=== PATIENT | female | born 1965 | race Caucasian/White ===

== ENCOUNTER → 2019-10-22 09:53 | Outpatient (BNVA) | payer BC, SELFPAY | PROVIDERS: Visit Provider Registered Nurse | DX: I10 Essential (primary) hypertension (principal); E11.9 Type 2 diabetes mellitus without complications; E78.5 Hyperlipidemia, unspecified; F41.8 Other specified anxiety disorders | CPT/HCPCS: 80053; 80061; 83036; 84443; 85025 ==

== ENCOUNTER → 2020-04-13 09:39 | Outpatient (BNVA) | payer BC, SELFPAY | PROVIDERS: Visit Provider Registered Nurse | DX: E11.65 Type 2 diabetes mellitus with hyperglycemia (principal); I10 Essential (primary) hypertension | CPT/HCPCS: 80053; 80061; 83036; 85025 ==

== ENCOUNTER 2020-04-30 17:38 | Emergency (ER) | payer BC, SELFPAY ==
[2020-04-30 17:40] VITALS: BP 162/89; PULSE 92; RESP 16; TEMP 36.8; O2SAT 97; BMI 31.2
--- NOTE | 2020-04-30 17:51 | XRR_ITS ---
PROCEDURE INFORMATION: Exam: XR Chest, 1 View Exam date and time: 04/30/2020 6:09 PM Age: 54 years old Clinical indication: Other: Possible stroke; Additional info: Dva TECHNIQUE: Imaging protocol: XR of the chest Views: 1 view. COMPARISON: No relevant prior studies available. FINDINGS: Lungs: Unremarkable. No consolidation. Right mid lung granuloma. Pleural space: Unremarkable. No pleural effusion. No pneumothorax. Heart/Mediastinum: Unremarkable. No cardiomegaly. Bones/joints: Unremarkable. XR/XR chest 1V portable [id number] IMPRESSION: No acute findings.
--- NOTE | 2020-04-30 17:51 | ECG_ITS ---
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 Measurements Intervals [place] Rate: 80 P: -10 OH: 140 QRS: -25 QRSD: 88 T: 32 QT: 364 QTc: 420 Interpretive Statements SINUS RHYTHM MINIMAL VOLTAGE CRITERIA FOR LVH, CONSIDER NORMAL VARIANT [MEETS CRITERIA IN ONE OF: R(aVL), S(V1), R(V5), R(V5/V6)+S(V1)] SEPTAL MYOCARDIAL INFARCTION , PROBABLY OLD [40+ ms Q WAVE IN V1/V2] No previous ECG available for comparison Electronically Signed On 04-30-2020 20:39:13 CDT by Shanique Parson M.D. [id number] f
--- NOTE | 2020-04-30 17:51 | CTR_ITS ---
PROCEDURE INFORMATION: Exam: CT Head Without Contrast Exam date and time: 04/30/2020 5:55 PM Age: 54 years old Clinical indication: Speech disturbance; Patient HX: Expressive aphasia now resolved; Additional info: Symptoms of acute stroke TECHNIQUE: Imaging protocol: Computed tomography of the head without contrast. Radiation optimization: All CT scans at this facility use at least one of these dose optimization techniques: automated exposure control; mA and/or kV adjustment per patient size (includes targeted exams where dose is matched to clinical indication); or iterative reconstruction. COMPARISON: CT head wo con* [id number] 01/20/2014 12:12 PM RADIATION DOSE METRICS: Total DLP (mGy-cm): 791.47 FINDINGS: Brain: Incomplete imaging of the brain in the axial plane. No visible acute intracranial pathologic process or hemorrhage. Prominent Virchow Virgilio spaces. Unremarkable white matter. No mass effect. Cerebral ventricles: No ventriculomegaly. Bones/joints: Unremarkable. No acute fracture. Paranasal sinuses: Visualized sinuses are unremarkable. No fluid levels. Mastoid air cells: Visualized mastoid air cells are well aerated. Soft tissues: Unremarkable. CT/CT head wo con* [id number] IMPRESSION: No acute intracranial abnormality. Radiation Dose CTDIVOL = (mGy): DLP = 791.47 (mGy-cm)
--- NOTE | 2020-04-30 17:58 | PC.NURSE ---
pt to ct by stretcher with tech.
[2020-04-30 17:59] VITALS: O2SAT 98
[2020-04-30 18:29] LABS: Basophils % 0.5 %; Eosinophils # 0.2 10^3/uL (0.0-0.8); Eosinophils % 1.7 %; Hematocrit 45.4 % (37.0-47.0); Hemoglobin 15.1 g/dL (11.5-15.3); Lymphocytes # 3.7 10^3/uL (0.8-4.8); Lymphocytes % 42.9 %; Mean Corpuscular HGB Conc 33.3 g/dL (30.0-36.0); Mean Corpuscular Hemoglobin 29.4 pg (28.0-34.0); Mean Corpuscular Volume 88.3 fL (81-99); Monocytes # 0.6 10^3/uL (0.2-0.9); Monocytes % 7.4 %; Neutrophils # 4.08 10^3/uL (1.8-7.7); Neutrophils % 47.3 %; Nucleated Red Blood Cells % 0 %; Platelet Count 255 10^3/cmm (130-400); Red Blood Count 5.14 10^6/uL (4.1-5.3); Red Cell Distribution Width 12.5 % (12.1-15.1); White Blood Count 8.6 10^3/uL (4.0-10.0)
[2020-04-30 18:31] VITALS: BP 131/71; PULSE 84; RESP 17; O2SAT 97
[2020-04-30 18:34] LABS: Glucose Point of Care 323 mg/dL (70-110)
[2020-04-30 18:43] LABS: INR 0.89 (0.8-1.2)
[2020-04-30 18:48] LABS: Alanine Aminotransferase 23 U/L (0-33); Albumin Level 4.6 g/dL (3.5-5.2); Alkaline Phosphatase 115 IU/L (35-105); Anion Gap 15.8 (5-19); Aspartate Amino Transferase 18 U/L (0-32); Blood Urea Nitrogen 17 mg/dL (6-20); Calcium 11.2 mg/dL (8.5-10.5); Carbon Dioxide 26 mmol/L (22-29); Chloride 95 mmol/L (98-107); Creatinine Clr Calc Pharmacy 149.9543; Glomerular Filtration Rate 127.6 mL/min (90-130); Glucose 322 mg/dL (65-115); Osmolality Calculated 290 mOsm/kg (285-295); Potassium 3.8 mmol/L (3.5-5.1); Sodium 133 mmol/L (136-145); Total Bilirubin 0.6 mg/dL (0.15-1.2); Total Protein 7.6 g/dL (6.6-8.7)
[2020-04-30] MEDS: insulin regular-human 100 units/1 mL 5 UNIT IVP (19:12)
--- NOTE | 2020-04-30 19:17 | ED_ITS ---
HPI - Neuro Symptoms/Deficit General: Chief Complaint: Neuro Symptoms/Deficit Stated Complaint: possible stroke Time Seen by Provider: 04/30/20 17:51 Source: patient Mode of arrival: ambulatory Limitations: no limitations History of Present Illness: HPI Narrative: 34-year-old female states that today at roughly 430 she had expressive aphasia along with some numbness in her arm lasted roughly 5 minutes. States that since completely resolved. She states she was hyperglycemic at the time. Patient states that she has not had any symptoms since then. She denies headache. She denies any chest pain. Denies any vomiting or diarrhea. Associated symptoms: Deny chest pain, headache(s), nausea or vomiting Review of Systems Const: Denies: fever(s), chills, body aches or change in appetite Eyes: Denies: blurry vision or eye discomfort ENMT: Denies: throat pain or dental pain Card: Denies: chest pain Resp: Denies: dyspnea GI: Denies: abdominal pain, nausea, vomiting or diarrhea : Denies: dysuria Musc: Denies: neck pain or back pain Skin/Breast: Denies: rash Neuro: Reports: numbness in extremities; Denies: headache(s) Psych: Denies: depression Edgar/Lymph: Denies: easy bruising All/Imm: Denies: urticaria PFSH ED PFSH: Family History Other Diabetes Hypertension Social History Smoking and tobacco status: never smoked Alcohol intake: never Caregiver/support person: No Lives independently: Yes Marital status: Single Current occupational status: employed History of recent travel: No Sexually active: Yes Current gender identity: Female NIH stroke score NIHSS: Level Of Consciousness - 1a: 0 Level Of Consciousness Questions - 1b: Both Correct Level Of Consciousness Commands - 1c: Both Correct Best Gaze - 2: Normal Visual Russo - 3: No Visual Loss Facial Palsy - 4: Normal Motor Arm Right - 5: No Drift Motor Arm Left - 5: No Drift Motor Leg Right - 6: No Drift Motor Leg Left - 6: No Drift Limb Ataxia - 7: Absent Sensory - 8: Normal Best Language - 9: No Aphasia Dysarthia - 10: Normal Extinction And Inattention - 11: 0 Score: Total Score: 0 Physical Exam Const: COMMON NORMALS: no acute distress, patient oriented x3 and healthy appearing HENMT: COMMON NORMALS: normocephalic and atraumatic HEAD & SCALP: normoceph alic and atraumatic Eye: COMMON NORMALS: Equal, round and reactive pupils present and EOMs intact bilaterally PUPIL: Yes Equal, round and reactive pupils present Neck/C-Spine: COMMON NORMALS: full ROM and supple Chest: COMMONS NORMALS: normal inspection of the chest and normal palpation of entire chest wall Resp: COMMON NORMALS: normal respiratory effort, No retractions, No use of accessory muscles and clear to auscultation bilaterally AUSCULTATION: clear to auscultation bilaterally Cardio: COMMON NORMALS: regular rate, regular rhythm and No murmurs present (Cardio) RATE: regular rate RHYTHM: regular rhythm GI: COMMON NORMALS: Normal to inspection, nondistended, normoactive bowel sounds present, Soft to palpation, non-tender and no masses PALPATION: Yes Soft to palpation Extremity: COMMON NORMALS: normal to inspection and full ROM Neuro: COMMON NORMALS: patient oriented x3, moves all extremities and no focal motor deficits Psych: COMMON NORMALS: mental status grossly normal, Normal thought process present and cooperative THOUGHT PROCESS: Normal thought process present Skin: COMMON NORMALS: no rashes or lesions noted and no wounds GENERAL SKIN EXAM: no rashes or lesions noted Course Vital Signs: Vital signs: Vital Signs Temperature 98.3 F 04/30/20 17:40 Pulse Rate 77 04/30/20 19:40 Respiratory Rate 16 04/30/20 19:40 Blood Pressure 129/72 04/30/20 19:40 Pulse Oximetry 99 04/30/20 19:40 MDM - Neuro Symptoms/Deficit MDM Narrative: Medical decision making narrative: Patient presents here with TIA. Patient here and lives close. Strongly recommended admission for TIA work-up. States she feels much improved would like to go home and she believes this is due to her high blood sugar. Patient is here with an OB nurse as well who states she will watch her. We will discharge her and set her up for an outpatient carotid ultrasound and echo. She is to take an aspirin daily. She is to return immediately if she has any symptoms. Lab Data: Labs: Lab Results 04/30/20 04/30/20 04/30/20 Range/Units 18:21 18:21 18:21 WBC 8.6 (4.0-10.0) 10^3/ uL RBC 5.14 (4.1-5.3) 10^6/u L Hgb 15.1 (11.5-15.3) g/dL Hct 45.4 (37.0-47.0) % MCV 88.3 (81-99) fL MCH 29.4 (28.0-34.0) pg MCHC 33.3 (30.0-36.0) g/dL RDW 12.5 (12.1-15.1) % Plt Count 255 (130-400) 10^3/c mm MPV 11.0 H (7.4-10.4) fL Neut % (Auto) 47.3 % Lymph % (Auto) 42.9 % Schley % (Auto) 7.4 % Eos % (Auto) 1.7 % Baso % (Auto) 0.5 % Neut # (Auto) 4.08 (1.8-7.7) 10^3/u L Lymph # (Auto) 3.7 (0.8-4.8) 10^3/u L Schley # (Auto) 0.6 (0.2-0.9) 10^3/u L Eos # (Auto) 0.2 (0.0-0.8) 10^3/u L Baso # (Auto) 0.0 (0.0-0.1) 10^3/u L Nucleated RBC % (a uto) 0 % Nucleated RBCs # 0.0 /100WBC PT 12.30 (12.1-14.9) SECO NDS INR 0.89 (0.8-1.2) Sodium 133 L (136-145) mmol/L Potassium 3.8 (3.5-5.1) mmol/L Chloride 95 L (98-107) mmol/L Carbon Dioxide 26 (22-29) mmol/L Anion Gap 15.8 (5-19) BUN 17 (6-20) mg/dL Creatinine 0.5 (0.5-0.9) mg/dL GFR Calculation 127.6 (90-130) mL/min Glucose 322 H (65-115) mg/dL POC Glucose (70-110) mg/dL Calculated Osmolal ity 290 (285-295) mOsm/k g Calcium 11.2 H (8.5-10.5) mg/dL Total Bilirubin 0.6 (0.15-1.2) mg/dL AST 18 (0-32) U/L ALT 23 (0-33) U/L Alkaline Phosphata se 115 H (35-105) IU/L Total Protein 7.6 (6.6-8.7) g/dL Albumin 4.6 (3.5-5.2) g/dL Globulin 3.0 (1.3-4.6) g/dL 04/30/20 Range/Units 18:29 WBC (4.0-10.0) 10^3/ uL RBC (4.1-5.3) 10^6/u L Hgb (11.5-15.3) g/dL Hct (37.0-47.0) % MCV (81-99) fL MCH (28.0-34.0) pg MCHC (30.0-36.0) g/dL RDW (12.1-15.1) % Plt Count (130-400) 10^3/c mm MPV (7.4-10.4) fL Neut % (Auto) % Lymph % (Auto) % Schley % (Auto) % Eos % (Auto) % Baso % (Auto) % Neut # (Auto) (1.8-7.7) 10^3/u L Lymph # (Auto) (0.8-4.8) 10^3/u L Schley # (Auto) (0.2-0.9) 10^3/u L Eos # (Auto) (0.0-0.8) 10^3/u L Baso # (Auto) (0.0-0.1) 10^3/u L Nucleated RBC % (a uto) % Nucleated RBCs # /100WBC PT (12.1-14.9) SECO NDS INR (0.8-1.2) Sodium (136-145) mmol/L Potassium (3.5-5.1) mmol/L Chloride (98-107) mmol/L Carbon Dioxide (22-29) mmol/L Anion Gap (5-19) BUN (6-20) mg/dL Creatinine (0.5-0.9) mg/dL GFR Calculation (90-130) mL/min Glucose (65-115) mg/dL POC Glucose 323 (70-110) mg/dL Calculated Osmolal ity (285-295) mOsm/k g Calcium (8.5-10.5) mg/dL Total Bilirubin (0.15-1.2) mg/dL AST (0-32) U/L ALT (0-33) U/L Alkaline Phosphata se (35-105) IU/L Total Protein (6.6-8.7) g/dL Albumin (3.5-5.2) g/dL Globulin (1.3-4.6) g/dL Imaging Data^: CT Head: Radiologist's impression: [address] [address] [address] Scan Report Signed with Addenda Patient: Chayo Menard Unit #: [id number] : 1965 Age/Sex: 54 / F ADM Date: 04/30/20 Loc: ER Room/Bed: Attending Dr: Ordering Provider/Ordering MD: Jose Manriquez MD Date of Service: 04/30/20 Procedure(s): CT head wo con* [id number] Accession Number(s): [id number] Report Number: [id number]/CT head wo con* [id number] THIS REPORT CONTAINS FINDINGS THAT MAY BE CRITICAL TO PATIENT CARE. The findings were verbally communicated via telephone conference with jose Manriquez at 7:00 PM CDT on 04/30/2020. The findings were acknowledged and understood. Radiation Dose CTDIVOL = (mGy): DLP = 791.47 (mGy-cm) Addendum Dictated By: Joao Benitez Addendum Signed By: Joao Benitez Signed Date/Time: 04/30/20 190 2 Addendum Cosigned By: PROCEDURE INFORMATION: Exam: CT Head Without Contrast Exam date and time: 04/30/2020 5:55 PM Age: 54 years old Clinical indication: Speech disturbance; Patient HX: Expressive aphasia now resolved; Additional info: Symptoms of acute stroke TECHNIQUE: Imaging protocol: Computed tomography of the head without contrast. Radiation optimization: All CT scans at this facility use at least one of these dose optimization techniques: automated exposure control; mA and/or kV adjustment per patient size (includes targeted exams where dose is matched to clinical indication); or iterative reconstruction. COMPARISON: CT head wo con* [id number] 01/20/2014 12:12 PM RADIATION DOSE METRICS: Total DLP (mGy-cm): 791.47 FINDINGS: Brain: Incomplete imaging of the brain in the axial plane. No visible acute intracranial pathologic process or hemorrhage. Prominent Virchow Virgilio spaces. Unremarkable white matter. No mass effect. Cerebral ventricles: No ventriculomegaly. Bones/joints: Unremarkable. No acute fracture. Paranasal sinuses: Visualized sinuses are unremarkable. No fluid levels. Mastoid air cells: Visualized mastoid air cells are well aerated. Soft tissues: Unremarkable. CT/CT head wo con* [id number] IMPRESSION: No acute intracranial abnormality. Radiation Dose CTDIVOL = (mGy): DLP = 791.47 (mGy-cm) CXR: Radiologist's impression: [address] [address] XRay Report Signed Patient: Chayo Menard Unit #: [id number] : 1965 Age/Sex: 54 / F ADM Date: 04/30/20 Loc: ER Room/Bed: Attending Dr: Ordering Provider/Ordering MD: Jose Manriquez MD Date of Service: 04/30/20 Procedure(s): XR chest 1V portable [id number] Accession Number(s): [id number] Report Number: [id number] PROCEDURE INFORMATION: Exam: XR Chest, 1 View Exam date and time: 04/30/2020 6:09 PM Age: 54 years old Clinical indication: Other: Possible stroke; Additional info: Dva TECHNIQUE: Imaging protocol: XR of the chest Views: 1 view. COMPARISON: No relevant prior studies available. FINDINGS: Lungs: Unremarkable. No consolidation. Right mid lung granuloma. Pleural space: Unremarkable. No pleural effusion. No pneumothorax. Heart/Mediastinum: Unremarkable. No cardiomegaly. Bones/joints: Unremarkable. XR/XR chest 1V portable [id number] IMPRESSION: No acute findings. EKG Data^: EKG 1: Attestation: I personally reviewed and interpreted this EKG as follows: EKG interpretation date: 04/30/20 EKG interpretation time: 17:19 Interpretation: nsr hr [address] or t wave abnormalities qrs 88 qtc 399 Discharge Plan Discharge Patient Disposition: Home Clinical Impression: Transient cerebral ischemia Qualifiers: Transient cerebral ischemia type: unspecified Qualified Code(s): G45.9 - Transient cerebral ischemic attack, unspecified Condition: Stable Prescriptions: No Action metformin 1,000 mg tablet 1,000 mg PO BID 90 Days Qty: 180 RF: 0 lisinopril 20 mg tablet 20 mg PO DAILY Qty: 90 RF: 0 hydrochlorothiazide 25 mg tablet 25 mg PO DAILY Qty: 30 RF: 0 (DME) blood-glucose meter Kit See Rx Instructions .ROUTE .MEDSUPPLY Qty: 1 RF: 0 (DME) lancets Misc See Rx Instructions .ROUTE .MEDSUPPLY Qty: 200 RF: 0 (DME) Blood Glucose Test Strip See Rx Instructions .ROUTE .MEDSUPPLY Qty: 100 RF: 4 amlodipine 10 mg tablet 10 mg PO DAILY Qty: 90 RF: 0 atorvastatin [Lipitor] 10 mg tablet 10 mg PO DAILY Qty: 90 RF: 0 glipizide 10 mg tablet 10 mg PO BID Qty: 180 RF: 0 Lexapro 10 mg tablet 10 mg PO DAILY RF: 0 Rolaids 550-110 mg Tablet,Chewable 2 tab PO Q4H PRN (Reason: HEARTBURN/ACID REFLUX) RF: 0 Discharge Orders: Discharge Order (Routine); Ordered 04/30/20 Ordered By: Jose Manriquez Discharge Diet: Advance as tolerated Discharge Activity: Resume usual activity Patient Instructions: TIA Discharge Date/Time: 04/30/20 19:41 Coding Level of Care Code ED 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
[2020-04-30 19:40] VITALS: BP 129/72; PULSE 77; RESP 16; O2SAT 99
--- NOTE | 2020-05-03 15:30 | DCPLANNER ---
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 auto fleet maintenance manager faxed order to centralized scheduling. auto fleet maintenance manager will call for appointment information.
--- NOTE | 2020-05-08 08:46 | DCPLANNER ---
Patient has a follow up appointment scheduled for both an echo and carotid ultrasound for , May 27, 2020 at 12:45 and 1:30.
--- NOTE | 2020-05-28 11:17 | DCPLANNER ---
Patient had a follow up appointment scheduled for an echo and a carotid ultrasound - appointment was rescheduled.
== END 2020-04-30 19:41 | disposition home or self-care (01) ==
PROVIDERS: Emergency Provider Emergency Medicine
DX: G45.9 Transient cerebral ischemic attack, unspecified (principal)
CPT/HCPCS: 12345; 36415; 36416; 70450; 71045; 80053; 82962; 85025; 85610; 93005; 96374; 96375; 99283; 99284; J1815

== ENCOUNTER 2020-07-01 12:21 | Outpatient (CLI) | payer BC, SELFPAY ==
--- NOTE | 2020-07-01 12:27 | USCV_ITS ---
Chayo Menard Age: 54 Gender: F : 1965 Exam Date: 07/01/2020 12:44 Ordering Phys: Jose Manriquez MD Technologist: Loretta Arroyo Exam Location: [facility] [place] Indication: TIA BP: / HR: 82 Rhythm: Sinus Technical Quality: Adequate MEASUREMENTS (Male / Female) Normal Values 2D ECHO LV Diastolic Diameter PLAX 4.2 cm 4.2 - 5.9 / 3.9 - 5.3 cm LV Systolic Diameter PLAX 2.0 cm IVS Diastolic Thickness 1.3 cm 0.6 - 1.0 / 0.6 - 0.9 cm IVS Systolic Thickness 1.7 cm LVPW Diastolic Thickness 0.9 cm 0.6 - 1.0 / 0.6 - 0.9 cm LVPW Systolic Thickness 1.8 cm LVOT Diameter 2.0 cm LV Ejection Fraction 2D Teich 83.1 % LV Ejection Fraction MOD 2C 75.3 % LV Ejection Fraction 2C AL 77.1 % LA Diameter 3.3 cm LA Width 3.7 cm LA Height 4.5 cm RA Width 3.0 cm RA Height 4.4 cm Aorta at Sinotubular Diameter 3.1 cm M-MODE LV Diastolic Diameter MM 5.6 cm 4.2 - 5.9 / 3.9 - 5.3 cm LV Systolic Diameter MM 3.6 cm LV Ejection Fraction MM Teich 63.8 % IVS Diastolic Thickness MM 0.5 cm 0.6 - 1.0 / 0.6 - 0.9 cm IVS Systolic Thickness MM 1.0 cm LVPW Diastolic Thickness MM 1.0 cm 0.6 - 1.0 / 0.6 - 0.9 cm LVPW Systolic Thickness MM 1.6 cm Aortic Annulus Diameter 2.8 cm LA Ao Ratio MM 1.0 MV E Point Septal Separation 0.4 cm DOPPLER AV Peak Velocity 137.0 cm/s LVOT Peak Velocity 132.0 cm/s AV Area Cont Eq vti 3.2 cm squared AV Area Cont Eq pk 3.0 cm squared MV Peak Velocity 132.0 cm/s MV Area PHT 2.4 cm squared Mitral E to A Ratio 0.8 MV E' Velocity 55.5 cm/s Mitral E to MV E' Ratio 12.8 Mitral E to LV E' Lateral Ratio 9.4 Mitral E to LV E' Septal Ratio 19.9 TR Peak Velocity 132.7 cm/s TR Peak Gradient 7.0 mmHg Right Atrial Pressure 3.0 mmHg Pulmonary Artery Systolic Pressu 10.0 mmHg PV Peak Velocity 100.0 cm/s RV Acceleration Time 0.1 s RV Ejection Time 0.3 s RV AcT/ET 0.4 FINDINGS Left Ventricle Normal left ventricular cavity size. Normal left ventricular systolic function. No regional wall motion abnormalities. Left ventricular ejection fraction is estimated at 63 %. Grade I/IV diastolic dysfunction (abnormal relaxation filling pattern), normal to mildly elevated filling pressures. Right Ventricle The right ventricle is normal in size and function. Right Atrium The right atrium is normal in size. Left Atrium The left atrium is normal in size. Mitral Valve Mildly thickened mitral valve. Moderate mitral annular calcification. No mitral valve stenosis. No mitral valve regurgitation. Aortic Valve Aortic valve sclerosis without stenosis or regurgitation. Tricuspid Valve Structurally normal tricuspid valve without significant stenosis or regurgitation. Pulmonary artery systolic pressure is normal. Pulmonic Valve Structurally normal pulmonic valve without significant stenosis. There is no pulmonic regurgitation. Pericardium Normal pericardium without effusion. Aorta Normal ascending aorta dimension. CONCLUSIONS 1-Normal left ventricular cavity size. Normal left ventricular systolic function. No regional wall motion abnormalities. Left ventricular ejection fraction is estimated at 63 %. Grade I/IV diastolic dysfunction (abnormal relaxation filling pattern), normal to mildly elevated filling pressures. 2-There is no pericardial effusion. 3-No significant valve abnormalities. 4-Right atrial pressure is around 5 mm of mercury. 5-There are no prior echocardiogram studies to compare. Shanique Parson MD (Electronically Signed) Final Date: 02 July 2020 15:59 S
--- NOTE | 2020-07-01 13:30 | USCV_ITS ---
Chayo Menard Age: 54 Gender: F : 1965 Exam Date: 07/01/2020 13:08 Ordering Phys: Jose Manriquez MD Technologist: Loretta Arroyo Exam Location: [facility] [place] Indication: TIA Risk Factors: Previous Vascular Surgery: Right Brachial BP: / Left Brachial BP: / Right Left Velocity (cm/s) Spectral Plaque Velocity (cm/s) Spectral Plaque Syst/Diast Broadening Syst/Diast Broadening 90.40/ 15.40 Prox CCA 61.50 / 15.40 63.90/ 18.70 Mid CCA 39.30 / 9.40 48.20/ 14.00 Distal CCA 42.20 / 9.10 32.00/ 13.90 Prox ICA 42.70 / 11.20 57.70/ 19.80 Mid ICA 57.20 / 22.30 73.60/ 26.80 Distal ICA 76.90 / 25.60 66.00 ECA 106.90 0.81 ICA/CCA 1.25 Antegrade Vertebral Antegrade 39.50/ 9.10 cm/s 26.50/ 5.60 cm/s Tri Subclavian Tri 101.0 132.1 0 0 FINDINGS Minimal plaques at the bifurcations bilaterally Intimal thickening in the common carotid arteries bilaterally. Antegrade flow in the vertebral arteries bilaterally. Normal Doppler flow velocities in the external carotid arteries bilaterally CONCLUSIONS Minimal plaques at the bifurcations bilaterally. No significant stenosis, based on the above findings Dr Clarence Vazquez MD [facility] (Electronically Signed) Final Date: 02 July 2020 15:59 S
== END 2020-07-01 12:22 | disposition home or self-care (01) ==
LOC: RAD 12:24
PROVIDERS: PCP Registered Nurse; Visit Provider Emergency Medicine
DX: G45.9 Transient cerebral ischemic attack, unspecified (principal); I35.8 Other nonrheumatic aortic valve disorders
CPT/HCPCS: 93306; 93880

== ENCOUNTER → 2020-07-06 08:52 | Outpatient (BNVA) | payer BC, SELFPAY | PROVIDERS: PCP Registered Nurse; Visit Provider Registered Nurse | DX: E11.65 Type 2 diabetes mellitus with hyperglycemia (principal); I10 Essential (primary) hypertension; R07.9 Chest pain, unspecified | CPT/HCPCS: 80053; 83036 ==

== ENCOUNTER 2020-08-03 12:34 | Outpatient (CLI) | payer BC, SELFPAY ==
--- NOTE | 2020-08-03 12:48 | MM_ITS ---
WS: [id number] SCREENING DIGITAL MAMMOGRAM WITH CAD HISTORY: SCREEN COMPARISON: 07/20/2011 Bilateral CC and MLO views submitted. Computer aided detection analyzed. Breast composition: There are scattered areas of fibroglandular density. No suspicious masses, microc alcifications or architectural distortion. MM/[place] [id number] IMPRESSION: BI-RADS: 1-Negative FOLLOW UP: 1 Year Follow-up
== END 2020-08-03 12:35 | disposition home or self-care (01) ==
LOC: RADSHAW 12:36
PROVIDERS: PCP Registered Nurse; Visit Provider Registered Nurse
DX: Z12.31 Encounter for screening mammogram for malignant neoplasm of breast (principal)
CPT/HCPCS: 77067

== ENCOUNTER 2020-10-28 08:17 | Outpatient (CLI) | payer OTHER, SELFPAY ==
[2020-10-28 08:27] VITALS: BMI 33.4
--- NOTE | 2020-10-28 08:28 | ECG_ITS ---
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 Interpretive Statements NAME OF STUDY: EXERCISE SESTAMIBI STRESS TEST INDICATION: [Chest Pain] EXERCISE DATA: The patient was exercised by Jasiel protocol. Baseline heart rate was 85 beats per minute. Baseline blood pressure was 146/91 millimeters of mercury. Target heart rate was 138 beats per minute. Maximum heart rate achieved was 148, which was 90% of the target heart rate. Maximum blood pressure was 239/86 millimeters of mercury. Total exercise time was 4 minutes and 30 seconds. Maximum METs achieved was 7.0, maximum VO2 was 24.5. The reason for ending the test was completion of the protocol. The patient did not complain of significant symptoms during the test. ELECTROCARDIOGRAM: BASELINE: Showed sinus rhythm, normal axis, no significant ST-T changes at the baseline noted. [] EXERCISE: At the peak exercise level, [] No significant ST-T changes suggestive of ischemia noted. [] RECOVERY: During the recovery period, heart rate dropped appropriately. No significant ST-T changes in the recovery suggestive of ischemia noted.Occasional PVCs were noted [] CONCLUSION: 1. Exercise capacity is fair []. 2. Heart rate response was appropriate. 3. Blood pressure response was hypertensive 4. Symptoms not suggestive of ischemia. 5. Electrocardiogram portion of the stress test was not suggestive of ischemia. 6. Nuclear scan will be documented separately. Electronically Signed On 10-31-2020 17:56:25 CDT by Hector Barnes M.D. [email or web address] [email or web address] [facility].[employer]/store/OM/[id number]
--- NOTE | 2020-10-28 08:29 | NMCV_ITS ---
NM nahed perf SPECT r/s* [id number] Chayo Menard Age: 55 Gender: F : 1965 Exam Date: 10/28/2020 09:41 Ordering Phys: Hector Barnes M.D ([email or web address]) Technologist: DONNA Rosenbaum Exam Location: [facility] Indications: CHEST PAIN STRESS TEST Please see separate stress test report in [facility] for full findings IMAGE PROTOCOL Rest/Stress 1 Exercise Day Radiopharmaceutical Dose (mCi) Administration Site Administered by Rest: Tc-99m 10.5 IV DONNA Chapman Sestamibi Stress:Tc-99m 32.7 IV DONNA Chapman Sestamizackary Rest: 28-Oct-2020 60 Discovery 630 Stress: 28-Oct-2020 60 Discovery 630 Radiopharmaceutical was injected at 85 % maximum heart rate. Images obtained in supine and prone position. SPECT RESULTS Technical Quality: Good Raw Data Analysis: Breast attenuation Image Corrections: No attenuation or motion correction applied Summed Stress Score: 8 Summed Rest Score: 9 Summed Difference Score: 1 PERFUSION FINDINGS There is reduced radiotracer uptake on both rest and stress in the anterior, anteroseptal, apical lateral and mid lateral goodrich. This likely represents attenuation artifact. No evidence of ischemia FUNCTIONAL RESULTS (calculated via Gated SPECT) Stress Image LV EF (%): 67 Stress EDV (mL):85 TID: 0.96 Stress ESV (mL):28 FUNCTIONAL FINDINGS: There is normal left ventricular systolic function. IMPRESSIONS 1. Attenuation artifact noted as above. No evidence of ischemia. Normal myocardial perfusion imaging. 2. LV systolic function is normal Hector Barnes MD (Electronically Signed) Final Date: 28 October 2020 18:22 S
--- NOTE | 2020-10-28 10:06 | SUR.PREOP ---
Patient reports no pain or discomfort prior to the start of the procedure.
[2020-10-28 10:40] VITALS: BP 174/91; PULSE 98
== END 2020-10-28 08:18 | disposition home or self-care (01) ==
PROVIDERS: PCP Registered Nurse; Visit Provider Internal Medicine
DX: R07.9 Chest pain, unspecified (principal); I10 Essential (primary) hypertension
CPT/HCPCS: 78452; 93017; A9500

== ENCOUNTER → 2020-11-04 10:53 | Outpatient (BNVA) | payer OTHER, SELFPAY | PROVIDERS: PCP Registered Nurse; Visit Provider Registered Nurse | DX: I10 Essential (primary) hypertension (principal); E11.9 Type 2 diabetes mellitus without complications; R07.9 Chest pain, unspecified; E11.65 Type 2 diabetes mellitus with hyperglycemia; F41.8 Other specified anxiety disorders | CPT/HCPCS: 80053; 83036 ==

== ENCOUNTER 2020-11-09 11:50 | Outpatient (CLI) | payer OTHER, SELFPAY ==
--- NOTE | 2020-11-09 12:02 | XRR_ITS ---
PROCEDURE INFORMATION: Exam: XR Chest Exam date and time: 11/09/2020 12:12 PM Age: 55 years old Clinical indication: Chest pain; Type not specified; Additional info: R07.9 - chest pain, unspecified onset 08/30/20 TECHNIQUE: Imaging protocol: XR of the chest. Views: 2 views. COMPARISON: CR XR chest 1V portable [id number] 04/30/2020 5:56 PM FINDINGS: Lungs: There is a small granuloma in the right lower lobe at the 7th posterior rib measuring 5.6 mm is seen. This finding was present on prior examination and appears similar.. No consolidation. Pleural spaces: Unremarkable. No pleural effusion. No pneumothorax. Heart/Mediastinum: Unremarkable. No cardiomegaly. 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 XR/XR chest 2V* [id number] IMPRESSION: 1. No acute findings. 2. Stable right lung granuloma
== END 2020-11-09 11:51 | disposition home or self-care (01) ==
PROVIDERS: PCP Registered Nurse; Visit Provider Registered Nurse
DX: R07.9 Chest pain, unspecified (principal); J84.10 Pulmonary fibrosis, unspecified
CPT/HCPCS: 71046

== ENCOUNTER 2020-12-07 05:50 | Outpatient (CLI) | payer OTHER, SELFPAY ==
[2020-12-07 06:23] VITALS: BP 121/80; PULSE 79; RESP 16; TEMP 36.6; O2SAT 96; BMI 31.0
--- NOTE | 2020-12-07 06:31 | AMB.MCA ---
Patient Information Referred by: 55-year-old female who presents emergency room having said symptoms of Covid start 5 days ago. She tested positive yesterday been very mild she has had nonproductive cough low-grade fever myalgias generally not feeling well. Patient is diabetic and hypertensive. Her medical history and vitals are reviewed she does still meet criteria and wishes to proceed with our signing consent and proceed with infusion. Symptom onset date: 12/02/20 COVID 19 common symptoms: positive fever(s), chills, cough, non-productive cough, fatigue, body aches, headache(s) and nasal congestion Severity: mild Treatment prior to arrival: acetaminophen and ibuprofen [facility] COVID test results: No Data to Display outside results available, scanned Criteria/Plan Inclusion/Exclusion Criteria weight >/= 40kg, + direct test </= 10 days ago and symptom onset </= 10 days ago has diabetes and age >/= 55 and has hypertension not requiring hospitalization, not requiring oxygen (if not chronically on oxygen) and no increase oxygen requirement (if chronically on oxygen) Patient education patient/family/caregiver received/reviewed fact sheet, Emergency Use Authorization/unapproved drug status discussed with patient/family/caregiver, alternatives to this treatment discussed with patient/family/caregiver, risks and benefits of medication reviewed with patient/family/caregiver, patient/family/caregiver given opportunity for questions, which were answered and patient consents to receiving Monoclonal Antibody Treatment Related diagnosis (1) Essential hypertension: (2) Type 2 diabetes mellitus: Qualifiers: 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
[2020-12-07 08:00] VITALS: BP 109/71; PULSE 75; O2SAT 95
[2020-12-07 08:29] VITALS: BP 112/75; PULSE 78; O2SAT 98
[2020-12-07 09:34] VITALS: BP 115/79; PULSE 64; RESP 15; O2SAT 96
== END 2020-12-07 05:51 | disposition home or self-care (01) ==
LOC: ER 05:52
PROVIDERS: PCP Registered Nurse; Visit Provider Family Medicine
DX: U07.1 COVID-19 (principal); I10 Essential (primary) hypertension; E11.65 Type 2 diabetes mellitus with hyperglycemia; E78.2 Mixed hyperlipidemia; Z86.73 Personal history of transient ischemic attack (TIA), and cerebral infarction without residual deficits; Z82.49 Family history of ischemic heart disease and other diseases of the circulatory system
CPT/HCPCS: 96365

== ENCOUNTER → 2021-04-11 10:22 | Outpatient (BNVA) | payer OTHER, SELFPAY | PROVIDERS: PCP Registered Nurse; Visit Provider Registered Nurse | DX: E11.65 Type 2 diabetes mellitus with hyperglycemia (principal); F41.8 Other specified anxiety disorders | CPT/HCPCS: 80053; 83036 ==

== ENCOUNTER → 2021-06-16 08:33 | Outpatient (BNVA) | payer OTHER, SELFPAY | PROVIDERS: PCP Registered Nurse; Visit Provider Internal Medicine | DX: E11.65 Type 2 diabetes mellitus with hyperglycemia (principal); E78.2 Mixed hyperlipidemia; G45.9 Transient cerebral ischemic attack, unspecified; Z82.49 Family history of ischemic heart disease and other diseases of the circulatory system; Z79.84 Long term (current) use of oral hypoglycemic drugs | CPT/HCPCS: 99214 ==

== ENCOUNTER 2021-06-16 09:21 | Outpatient (CLI) | payer OTHER, SELFPAY ==
[2021-06-16 10:19] LABS: Estmated Average Glucose 174; Hemoglobin A1C 7.7 % (4.0-6.0)
[2021-06-16 10:20] LABS: Creatinine Urine, Random 75 mg/dL (28-217)
[2021-06-16 10:22] LABS: Alanine Aminotransferase 29 U/L (0-33); Albumin Level 4.6 g/dL (3.5-5.2); Alkaline Phosphatase 68 IU/L (35-105); Anion Gap 17.3 (5-19); Aspartate Amino Transferase 19 U/L (0-32); Blood Urea Nitrogen 8 mg/dL (6-20); Calcium 10.3 mg/dL (8.5-10.5); Carbon Dioxide 22 mmol/L (22-29); Chloride 103 mmol/L (98-107); Chol HDL Ratio 1.96 mg/dL (0.0-4.40); Cholesterol 110 mg/dL (0-200); Glomerular Filtration Rate 127.2 mL/min (90-130); Glucose 157 mg/dL (65-115); HDL Cholesterol 56 mg/dL (60-100); LDL Cholesterol Calculated 30 mg/dL (50-129); LDL HDL Ratio 0.54 RATIO (0.00-3.22); Osmolality Calculated 288 mOsm/kg (285-295); Potassium 4.3 mmol/L (3.5-5.1); Sodium 138 mmol/L (136-145); Total Bilirubin 0.7 mg/dL (0.15-1.2); Total Protein 7.6 g/dL (6.6-8.7); Triglycerides 121 mg/dL (0-150)
[2021-06-16 10:24] LABS: Microalbum Creatinine Ratio Ur 13 mg/dL (0-20); Microalbumin Random Urine 1 ug/dL (0-20)
== END 2021-06-16 09:22 | disposition home or self-care (01) ==
PROVIDERS: PCP Registered Nurse; Visit Provider Internal Medicine
DX: E11.65 Type 2 diabetes mellitus with hyperglycemia (principal); E78.2 Mixed hyperlipidemia
CPT/HCPCS: 36415; 80053; 80061; 82044; 83036

== ENCOUNTER → 2021-11-07 10:51 | Outpatient (BNVA) | payer OTHER, SELFPAY | PROVIDERS: PCP Registered Nurse; Visit Provider Registered Nurse | DX: E11.65 Type 2 diabetes mellitus with hyperglycemia (principal); Z71.85 Encounter for immunization safety counseling; I10 Essential (primary) hypertension | CPT/HCPCS: 83036 ==

== ENCOUNTER → 2022-03-14 10:05 | Outpatient (BNVA) | payer OTHER, SELFPAY | PROVIDERS: PCP Registered Nurse; Visit Provider Registered Nurse | DX: E78.5 Hyperlipidemia, unspecified (principal); E11.65 Type 2 diabetes mellitus with hyperglycemia | CPT/HCPCS: 80053; 80061; 83036; 85025 ==

== ENCOUNTER → 2022-03-22 09:52 | Outpatient (BNVA) | payer OTHER, SELFPAY | PROVIDERS: PCP Registered Nurse; Visit Provider Registered Nurse | DX: E11.65 Type 2 diabetes mellitus with hyperglycemia (principal); E87.6 Hypokalemia | CPT/HCPCS: 80053 ==

== ENCOUNTER → 2022-11-29 09:07 | Outpatient (BNVA) | payer SELFPAY | PROVIDERS: PCP Registered Nurse; Visit Provider Registered Nurse | DX: E11.65 Type 2 diabetes mellitus with hyperglycemia (principal); E78.5 Hyperlipidemia, unspecified; I10 Essential (primary) hypertension; F41.8 Other specified anxiety disorders; Z91.14 Patient's other noncompliance with medication regimen; E78.2 Mixed hyperlipidemia; R25.2 Cramp and spasm | CPT/HCPCS: 80053; 80061; 83036; 85025 ==

== ENCOUNTER → 2023-03-16 09:21 | Outpatient (BNVA) | payer OTHER, SELFPAY | PROVIDERS: PCP Registered Nurse; Visit Provider Registered Nurse | DX: E11.65 Type 2 diabetes mellitus with hyperglycemia (principal); E78.5 Hyperlipidemia, unspecified; I10 Essential (primary) hypertension; F41.8 Other specified anxiety disorders; B37.9 Candidiasis, unspecified | CPT/HCPCS: 80053; 80061; 83036 ==

== ENCOUNTER → 2023-08-29 10:23 | Outpatient (BNVA) | payer BC, SELFPAY | PROVIDERS: PCP Registered Nurse; Visit Provider Registered Nurse | DX: E11.9 Type 2 diabetes mellitus without complications (principal); R42 Dizziness and giddiness; R00.1 Bradycardia, unspecified; I45.9 Conduction disorder, unspecified; E11.65 Type 2 diabetes mellitus with hyperglycemia; I10 Essential (primary) hypertension | CPT/HCPCS: 80053; 80061; 82607; 83036; 85025; 93005 ==

== ENCOUNTER → 2023-09-06 16:07 | Outpatient (BNVA) | payer BC, SELFPAY | PROVIDERS: PCP Registered Nurse; Visit Provider Registered Nurse | DX: E11.65 Type 2 diabetes mellitus with hyperglycemia (principal); Z01.419 Encounter for gynecological examination (general) (routine) without abnormal findings; N39.0 Urinary tract infection, site not specified; Z12.11 Encounter for screening for malignant neoplasm of colon; Z12.31 Encounter for screening mammogram for malignant neoplasm of breast; N89.8 Other specified noninflammatory disorders of vagina; Z71.85 Encounter for immunization safety counseling; Z79.899 Other long term (current) drug therapy | CPT/HCPCS: 81000; 87070; 87086; 87205 ==

== ENCOUNTER 2023-09-28 15:14 | Outpatient (CLI) | payer BC, SELFPAY ==
--- NOTE | 2023-09-28 15:17 | MM_ITS ---
WS: [id number] BILATERAL 3D TOMOSYNTHESIS DIGITAL SCREENING MAMMOGRAPHY WITH CAD CLINICAL INFORMATION: Z12.39 - Encounter for other screening for malignant neop... HISTORY: Screening mammogram. No current complaints. COMPARISON: 2020 TECHNIQUE: Bilateral CC and MLO views. FINDINGS: Scattered fibroglandular densities bilaterally. No suspicious focal mass, asymmetry, calcifications, or architectural distortion. No evidence of malignancy. A few tiny incidental punctate calcifications . IMPRESSION: MM/[place] [id number] BI-RADS: 2-Benign FOLLOW UP: 1 Year Follow-up Recommend return to annual screening mammography.
== END 2023-09-28 15:15 | disposition home or self-care (01) ==
LOC: RAD 15:15
PROVIDERS: PCP Registered Nurse; Visit Provider Registered Nurse
DX: Z12.39 Encounter for other screening for malignant neoplasm of breast (principal); R92.323 Mammographic fibroglandular density, bilateral breasts
CPT/HCPCS: 77063; 77067

== ENCOUNTER 2023-10-10 11:33 | Day surgery (SDC) | payer BC, SELFPAY ==
[2023-10-10] MEDS: sodium chloride 0.9% 1,000 ML 30 ML IV (11:58)
[2023-10-10 12:12] VITALS: BP 142/88; PULSE 85; RESP 18; TEMP 36.3; O2SAT 97
[2023-10-10 12:13] VITALS: BMI 30.4
[2023-10-10 12:13] LABS: Glucose Point of Care 267 mg/dL (70-110)
--- NOTE | 2023-10-10 13:04 | W.PM.OPSUD ---
Surgery/Procedure H&P Update DATE OF PROCEDURE: October 10, 2023 DATE H&P PERFORMED: 09/14/23 H&P UPDATE INFORMATION: I have reviewed H&P completed within last 30 days, I have examined patient prior to procedure and No changes to prior documentation PLANNED PROCEDURE: Operation Date: 10/10/23 12:45 Proposed Procedures p [id number] egd [id number] colonoscopy G0121 screen colon a risk Z12.11,K21.9(Not Applicable) - DO leo Beck Colonoscopy(Not Applicable) - Mainsh Esquivel DO
[2023-10-10 13:26] VITALS: BP 104/67; PULSE 70; RESP 14; TEMP 36.3; O2SAT 96
[2023-10-10 13:40] VITALS: BP 132/83; PULSE 74; RESP 16; O2SAT 96
--- NOTE | 2023-10-10 13:50 | ANE.PACU2 ---
Inpatient post-anesthesia follow up: Airway intact: Yes Vital signs: Temperature 97.3 F Pulse Rate 74 Respiratory Rate 16 Blood Pressure 132/83 Pulse Oximetry 96 Oxygen Delivery Me thod Room Air Oxygen Flow Rate Fraction of Inspir ed Oxygen Hydration adequate: Yes Nausea and vomiting: No Pain level: 1 Mental status: Baseline
== END 2023-10-10 13:50 | disposition home or self-care (01) ==
PROVIDERS: PCP Registered Nurse; Visit Provider Surgery
PROC: 0DJ08ZZ Inspection of Upper Intestinal Tract, Via Natural or Artificial Opening Endoscopic (ICD-10-PCS; CPT 43235; principal; 2023-10-10 12:45)
PROC: 0DJD8ZZ Inspection of Lower Intestinal Tract, Via Natural or Artificial Opening Endoscopic (ICD-10-PCS; CPT 45378; 2023-10-10 12:45)
DX: Z12.11 Encounter for screening for malignant neoplasm of colon (principal); K21.9 Gastro-esophageal reflux disease without esophagitis; K44.9 Diaphragmatic hernia without obstruction or gangrene; Z79.82 Long term (current) use of aspirin; Z79.84 Long term (current) use of oral hypoglycemic drugs; Z86.73 Personal history of transient ischemic attack (TIA), and cerebral infarction without residual deficits; Z82.49 Family history of ischemic heart disease and other diseases of the circulatory system; E78.5 Hyperlipidemia, unspecified; E11.9 Type 2 diabetes mellitus without complications; I10 Essential (primary) hypertension
CPT/HCPCS: 36416; 43239; 45378; 82962; 88305; J2704; J7030

== ENCOUNTER → 2024-02-18 11:11 | Outpatient (BNVA) | payer BC, SELFPAY | PROVIDERS: PCP Registered Nurse; Visit Provider Registered Nurse | DX: E11.65 Type 2 diabetes mellitus with hyperglycemia (principal) | CPT/HCPCS: 80053; 80061; 83036; 85025 ==

== ENCOUNTER → 2024-03-04 09:08 | Outpatient (BNVA) | payer BC, SELFPAY | PROVIDERS: PCP Registered Nurse; Visit Provider Registered Nurse | DX: E87.6 Hypokalemia (principal) | CPT/HCPCS: 80053 ==

== ENCOUNTER → 2024-05-01 15:39 | Outpatient (BNVA) | payer BC, SELFPAY | PROVIDERS: PCP Registered Nurse; Visit Provider Registered Nurse | DX: E11.65 Type 2 diabetes mellitus with hyperglycemia (principal) | CPT/HCPCS: 83036 ==

== ENCOUNTER → 2024-09-19 08:43 | Outpatient (BNVA) | payer BC, SELFPAY | PROVIDERS: PCP Registered Nurse; Visit Provider Registered Nurse | DX: E11.9 Type 2 diabetes mellitus without complications (principal); E11.65 Type 2 diabetes mellitus with hyperglycemia | CPT/HCPCS: 80053; 82607; 83036; 85025 ==

== ENCOUNTER → 2024-12-19 11:30 | Outpatient (BNVA) | payer BC, SELFPAY | PROVIDERS: PCP Registered Nurse; Visit Provider Registered Nurse | DX: E11.65 Type 2 diabetes mellitus with hyperglycemia (principal); Z79.4 Long term (current) use of insulin | CPT/HCPCS: 83036 ==

== ENCOUNTER → 2025-03-05 11:00 | Outpatient (BNVA) | payer BC, SELFPAY | PROVIDERS: PCP Registered Nurse; Visit Provider Registered Nurse | DX: E11.65 Type 2 diabetes mellitus with hyperglycemia (principal); Z79.4 Long term (current) use of insulin; E11.9 Type 2 diabetes mellitus without complications | CPT/HCPCS: 80048; 83036 ==

== ENCOUNTER → 2025-03-26 07:07 | Outpatient (BNVA) | payer BC, SELFPAY | PROVIDERS: PCP Registered Nurse; Visit Provider Registered Nurse | DX: N28.9 Disorder of kidney and ureter, unspecified (principal) | CPT/HCPCS: 80048 ==

== ENCOUNTER → 2025-06-03 10:07 | Outpatient (BNVA) | payer BC, SELFPAY | PROVIDERS: PCP Registered Nurse; Visit Provider Registered Nurse | DX: E11.65 Type 2 diabetes mellitus with hyperglycemia (principal); Z79.4 Long term (current) use of insulin | CPT/HCPCS: 83036 ==